=== PATIENT | female | born 1995 | race Caucasian/White ===

== ENCOUNTER 2016-10-24 10:41 | Emergency (ER) | payer OTHER ==
[~2016-10-24] VITALS: Ht 162.6 cm; Wt 61.2 kg
[2016-10-24 11:45] VITALS: BP 121/71
== END 2016-10-24 12:10 | disposition home or self-care (01) ==
LOC: ER 10:41
DX: O26.891 Other specified pregnancy related conditions, first trimester (principal); J02.9 Acute pharyngitis, unspecified; Z3A.12 12 weeks gestation of pregnancy

== ENCOUNTER 2016-12-01 13:33 | Emergency (ER) | payer MEDICAID, OTHER ==
[~2016-12-01] VITALS: Ht 162.6 cm; Wt 62.6 kg
[2016-12-01 14:02] VITALS: BP 111/74
[2016-12-01 14:11] LABS: Urine RBC None Seen /hpf (0 - 4)
[2016-12-01 14:43] LABS: Urine Bilirubin Negative (Negative); Urine Blood Negative /uL (Negative); Urine Color Yellow (Yellow); Urine Glucose Normal (Normal); Urine Ketone Negative (Negative); Urine Mucus FEW (None Seen); Urine Nitrite Negative (Negative); Urine Squamous Epithelial Cell MANY /hpf (<5); Urine Urobilinogen Normal (Negative); Urine pH 7.5 (5.0-8.0)
== END 2016-12-01 15:11 | disposition home or self-care (01) ==
LOC: ER 13:33
DX: O23.41 Unspecified infection of urinary tract in pregnancy, first trimester (principal); Z3A.18 18 weeks gestation of pregnancy
CPT/HCPCS: 76805; 81001